=== PATIENT | female | born 1965 | race Caucasian/White ===

== ENCOUNTER 2020-02-12 10:30 | Outpatient (CLI) | payer OTHER, SELFPAY ==
[2020-02-12 11:29] LABS: Basophils Absolute Auto 0.1 K/mm3 (0.0-0.1); Basophils Percent Auto 0.8 % (0.2-1.2); Eosinophils Absolute Auto 0.4 K/mm3 (0-0.3); Eosinophils Percent Auto 3.5 % (0-4.4); Hemoglobin 14.4 g/dL (12.0-15.0); Immature Granulocyte Absolute 0.03 K/mm3 (0.00-0.031); Immature Granulocyte Percent A 0.3 % (0-0.5); Lymphocytes Absolute Auto 3.04 K/mm3 (0.9-3.2); Lymphocytes Percent Auto 29.7 % (18.3-44.2); Mean Corpuscular Hemoglobin 32.7 pg (26-34); Mean Corpuscular Volume 90.9 fl (80-100); Mean Platelet Volume 7.8 fl (7.4-10.4); Monocytes Absolute Auto 0.8 K/mm3 (0.1-0.6); Monocytes Percent Auto 7.6 % (2.6-8.5); Neutrophils Percent Auto 58.1 % (45.5-73.1); Platelet Count Result 513 k/mm3 (150-375); Red Cell Distribution Width 13.5 % (11.5-14.5); White Blood Count 10.2 K/mm3 (4.5-10.0)
[2020-02-12 11:39] LABS: INR 0.9
[2020-02-12 12:13] LABS: Alanine Aminotransferase 13 U/L (4-35); Albumin Level 4.5 g/dL (3.5-5.1); Alkaline Phosphatase 98 U/L (38-126); Anion Gap 9 mmol/L (8-16); Aspartate Amino Transferase 28 U/L (14-36); Bilirubin,Total 0.7 mg/dL (0.2-1.3); Blood Urea Nitrogen 8 mg/dL (7-17); Calcium 9.6 mg/dL (8.4-10.2); Carbon Dioxide 26 mmol/L (22-30); Chloride 94 mmol/L (98-107); Cholesterol 255 mg/dL (0-200); Estimated Glomerular Filt Rate > 60; Glucose 88 mg/dL (65-105); HDL Direct 62 mg/dL; Magnesium 2.4 mg/dL (1.6-2.3); Potassium 5.4 mmol/L (3.4-5.0); Sodium 129 mmol/L (137-145); Triglycerides 109 mg/dL (<150)
[2020-02-12 12:24] LABS: LDL Cholesterol Direct 169 mg/dL
== END 2020-02-12 10:31 | disposition home or self-care (01) ==
PROVIDERS: PCP Family Medicine Adolescent Medicine; Visit Provider Internal Medicine Cardiovascular Disease
DX: R07.89 Other chest pain (principal); R06.00 Dyspnea, unspecified; Z01.810 Encounter for preprocedural cardiovascular examination
CPT/HCPCS: 36415; 80053; 80061; 83735; 84439; 85025; 85610

== ENCOUNTER 2020-02-14 01:20 | Outpatient (CLI) | payer OTHER, SELFPAY ==
[2020-02-14 22:13] LABS: SARS-CoV-2 RNA PCR Negative
== END 2020-02-14 01:21 | disposition home or self-care (01) ==
LOC: ANHCOVIDDT 01:20
PROVIDERS: PCP Family Medicine Adolescent Medicine; Visit Provider Internal Medicine Cardiovascular Disease
DX: Z01.812 Encounter for preprocedural laboratory examination (principal); Z20.828 Contact with and (suspected) exposure to other viral communicable diseases
CPT/HCPCS: 87635; C9803; U0003

== ENCOUNTER 2020-02-17 05:22 | Day surgery (SDC) | payer OTHER, SELFPAY ==
[2020-02-17] VITALS (14 sets, daily range): BP systolic 94–139; BP diastolic 60–89; PULSE 41–62; RESP 11–22; TEMP 36.5–36.8; O2SAT 97–100; BMI 23.8
[2020-02-17 09:06] LABS: Basophils Absolute Auto 0.1 K/mm3 (0.0-0.1); Eosinophils Absolute Auto 0.3 K/mm3 (0-0.3); Eosinophils Percent Auto 3.7 % (0-4.4); Hematocrit 37.1 % (37.0-47.0); Hemoglobin 13.6 g/dL (12.0-15.0); Immature Granulocyte Absolute 0.04 K/mm3 (0.00-0.031); Immature Granulocyte Percent A 0.5 % (0-0.5); Lymphocytes Absolute Auto 1.87 K/mm3 (0.9-3.2); Lymphocytes Percent Auto 22.4 % (18.3-44.2); Mean Corpuscular HGB Conc 36.7 g/dl (32-36); Mean Corpuscular Hemoglobin 32.6 pg (26-34); Mean Platelet Volume 8.5 fl (7.4-10.4); Monocytes Absolute Auto 0.8 K/mm3 (0.1-0.6); Monocytes Percent Auto 9.1 % (2.6-8.5); Neutrophils Absolute Auto 5.3 K/mm3 (1.3-6.7); Neutrophils Percent Auto 63.3 % (45.5-73.1); Platelet Count Result 479 k/mm3 (150-375); Red Blood Count 4.17 M/mm3 (4.2-5.4); Red Cell Distribution Width 13.5 % (11.5-14.5); White Blood Count 8.4 K/mm3 (4.5-10.0)
[2020-02-17 09:43] LABS: INR 0.9; Prothrombin Time 12.7 Seconds (11.1-14.7)
[2020-02-17 10:58] LABS: Alanine Aminotransferase 14 U/L (4-35); Albumin Level 3.8 g/dL (3.5-5.1); Alkaline Phosphatase 81 U/L (38-126); Anion Gap 6 mmol/L (8-16); Aspartate Amino Transferase 22 U/L (14-36); Bilirubin,Total 0.7 mg/dL (0.2-1.3); Blood Urea Nitrogen 7 mg/dL (7-17); Calcium 9.4 mg/dL (8.4-10.2); Carbon Dioxide 28 mmol/L (22-30); Chloride 93 mmol/L (98-107); Estimated CRCL calculation 97 ml/min; Estimated Glomerular Filt Rate > 60; Glucose 101 mg/dL (65-105); Potassium 4.8 mmol/L (3.4-5.0); Sodium 127 mmol/L (137-145)
--- NOTE | 2020-02-17 11:27 | WPDMODSED ---
Moderate Sedation Note-Pt Data Patient Data Allergies Allergy/AdvReac Type Severity Reaction Status Date / Time ibuprofen Allergy Dizziness Verified 02/16/20 13:52 Home Medications Medication Instructions Recorded Confirmed Type levothyroxine 100 mcg PO DAILY 02/16/20 02/16/20 History lisinopril 40 mg PO DAILY 02/16/20 02/16/20 History metoprolol succinate [Toprol XL] 100 mg PO DAILY 02/16/20 02/16/20 History Current Medications: Active Medications Sodium Chloride (Normal Saline Iv) 500 mls @ 100 mls/hr IV CONT .Q5H [facility] Sedation/Anesthesia: No previous sedation/anesthesia problems (including family history). PMFSH Social History Social History Smoking packs per day: 1 Smoking cigarettes per day: 20.0 Smoking status: Current every day smoker Tobacco type: cigarettes Second hand tobacco smoke exposure: Yes Drinks per week: 5 Substance use: never Living arrangements: alone Gender identity (if verbalized by the patient): Female Spiritual care concerns: No Mod Sed Physical Exam Physical Exam Pre Procedural Exam: Normal: Airway Hours since solid foods: 1 Hours since liquid intake: 10 Internal Medicine - PN: Obj Da Vital Signs Vital Signs: Vital Signs - 24 hr 02/17/20 09:00 Temperature 36.6 C Pulse Rate 51 L Respiratory Rate 15 Blood Pressure 104/72 Pulse Oximetry 99 Meds/Results Medications: Active Medications Generic Name Dose Route Start Last Admin Trade Name Freq PRN Reason Stop Dose Admin Sodium Chloride 500 mls @ 100 mls/hr 02/17/20 06:20 Normal Saline Iv IV CONT .Q5H [facility] Labs CBC & Chem 7: 02/17/20 08:51 02/17/20 10:33 Labs: Laboratory Results - last 24 hr 02/17/20 02/17/20 02/17/20 08:51 09:08 10:33 WBC 8.4 RBC 4.17 L Hgb 13.6 Hct 37.1 MCV 89.0 MCH 32.6 MCHC 36.7 H RDW 13.5 Plt Count 479 H MPV 8.5 Immature Gran % (Auto) 0.5 Neut % (Auto) 63.3 Lymph % (Auto) 22.4 [place] % (Auto) 9.1 H Eos % (Auto) 3.7 Baso % (Auto) 1.0 Lymph # (Auto) 1.87 [place] # (Auto) 0.8 H Eos # (Auto) 0.3 Baso # (Auto) 0.1 Abs Immat Gran (auto) 0.04 H Absolute Neuts (auto) 5.3 Absolute Nucleated RBC 0.0 Nucleated RBC % 0.0 PT 12.7 INR 0.9 Sodium 127 L Potassium 4.8 Chloride 93 L Carbon Dioxide 28 Anion Gap 6 L BUN 7 Creatinine 0.40 L Estim Creat Clear Calc 97 Estimated GFR > 60 Glucose 101 Calcium 9.4 Total Bilirubin 0.7 AST 22 ALT 14 Alkaline Phosphatase 81 Total Protein 7.0 Albumin 3.8 ASA Classification/Sedation ASA Classification/Sedation Risks: Risks, benefits and alternatives explained and patient/family accepted plan for sedation. Patient re-evaluated immediately prior to sedation.
--- NOTE | 2020-02-17 11:44 | PM.IMHP ---
H&P: HPI History of Present Illness Date/Time: 02/17/20 11:44 Chief complaint: Abnormal Stress Echo Narrative: Diana Elliott is a 54 year old female hypertension, hypothyroidism, tobacco abuse. Patient was referred by Dr. Jennings for coronary angiogram in the setting of chest discomfort and abnormal stress test. Patient reports episodes of chest discomfort and and shortness of breath. She had exercise MPI done on 11/10/2019. Patient exercised for 6.10 minutes; submaximal exercise ECG, nondiagnostic ST-T changes with exercise; echocardiogram was reported to show hypokinesis in the basal inferior, mid inferior and basal inferoseptal segments. LVEF was reported to be normal. [facility] Past Medical History Medical History Hypertension Social History Social History Smoking packs per day: 1 Smoking cigarettes per day: 20.0 Smoking status: Current every day smoker Tobacco type: cigarettes Second hand tobacco smoke exposure: Yes Drinks per week: 5 Substance use: never Living arrangements: alone Gender identity (if verbalized by the patient): Female Spiritual care concerns: No Meds Home Medications and Allergies Home Medications Medication Instructions Recorded Confirmed Type levothyroxine 100 mcg PO DAILY 02/16/20 02/16/20 History lisinopril 40 mg PO DAILY 02/16/20 02/16/20 History metoprolol succinate [Toprol XL] 100 mg PO DAILY 02/16/20 02/16/20 History Allergies Allergy/AdvReac Type Severity Reaction Status Date / Time ibuprofen Allergy Dizziness Verified 02/16/20 13:52 Vital Signs Vital Signs - 24 hr 02/17/20 09:00 Temperature 36.6 C Pulse Rate 51 L Respiratory Rate 15 Blood Pressure 104/72 Pulse Oximetry 99 Exam Narrative: Exam Narrative: PHYSICAL EXAMINATION: GENERAL: Alert, oriented, no acute distress MENTAL STATUS: affect appropriate to mood EYES: Extraocular movements intact, no pallor EARS: External ears appear normal, hearing grossly normal NOSE: Normal and patent, no discharge MOUTH: Mucous membranes moist, tongue normal NECK: Supple, no JVD CHEST: Good respiratory effort, clear to auscultation HEART: Normal rate, regular rhythm, normal S1 and S2, no audible murmurs ABDOMEN: Soft, nontender NEUROLOGICAL: Alert, oriented, normal speech, no gross motor deficits MUSCULOSKELETAL: No major deformity, no amputation EXTREMITIES: No pedal edema, no clubbing, no cyanosis SKIN: no rash on the exposed area, no cyanosis PSYCHIATRIC: Normal mood, appropriate affect H&P: Results Labs Labs: Short CBC 02/17/20 Range/Units 08:51 WBC 8.4 (4.5-10.0) K/mm3 Hgb 13.6 (12.0-15.0) g/dL Hct 37.1 (37.0-47.0) % Plt Count 479 H (150-375) k/mm3 BMP 02/17/20 10:33 Sodium 127 L Potassium 4.8 Chloride 93 L Carbon Dioxide 28 BUN 7 Creatinine 0.40 L Glucose 101 Calcium 9.4 Liver Function 02/17/20 Range/Units 10:33 Total Bilirubin 0.7 (0.2-1.3) mg/dL AST 22 (14-36) U/L ALT 14 (4-35) U/L Alkaline Phosphatase 81 (38-126) U/L Albumin 3.8 (3.5-5.1) g/dL Assessment and Plan Assessment and plan (1) Chest pain: Code(s): R07.9 - Chest pain, unspecified Status: Acute Assessment and Plan: cardiac catheterization
--- NOTE | 2020-02-17 11:47 | WPDCARDPROC ---
Cardiac Cath Procedure Note Date of procedure:: 02/17/20 Performing physician:: Miguel Jara MD Procedure Procedure note:: LEFT HEART CATHETERIZATION AND CORONARY ANGIOGRAM REPORT DATE OF PROCEDURE: 02/17/2020 INDICATION FOR PROCEDURE: Chest pain, abnormal stress echo BRIEF CLINICAL HISTORY:54 year old female with hypertension, hypothyroidism, tobacco abuse. Patient was referred by Dr. Jennings for coronary angiogram in the setting of chest discomfort and abnormal stress test. Patient reports episodes of chest discomfort and and shortness of breath. She had exercise MPI done on 11/10/2019. Patient exercised for 6.10 minutes; submaximal exercise ECG, nondiagnostic ST-T changes with exercise; echocardiogram was reported to show hypokinesis in the basal inferior, mid inferior and basal inferoseptal segments. LVEF was reported to be normal. Benefits and risks of the procedure were discussed with the patient in depth, and informed consent was obtained prior to the procedure. Risks of the procedure include but are not limited to vascular complications including groin hematoma, retroperitoneal bleed, vessel perforation; periprocedural AK, cardiac arrhythmias, stroke, contrast induced nephropathy, and . After discussing all the benefits, risks and alternatives, patient was willing to proceed with the procedure. PROCEDURES PERFORMED: 1. Left heart catheterization- Selective left and right coronary angiogram; left ventriculogram and hemodynamic assessment 2. Selective right common femoral angiogram 3. Moderate sedation-CPT code 80733 MODERATE SEDATION: Midazolam 1 mg; fentanyl 25 mcg; Start time 1119 , Stop time 1144 ; Total [id number] time 25 minutes; Chel Salinas RN was trained observer for moderate sedation. ACCESS SITE: Right common femoral artery PROCEDURE NOTE: After obtaining informed consent, patient was brought to catheterization lab and prepped and draped in a usual sterile manner. After local anesthesia with lidocaine, right common femoral artery access was taken with micropuncture needle followed by insertion of a 5 Cuban sheath. Selective left and right coronary angiogram was performed using 5 Cuban JL4 and JR4 catheters respectively. Orthogonal views were taken. Next, a 5 Cuban pigtail catheter was advanced in the LV cavity and was flushed with normal saline. LV pressure measurement was performed. After this, left ventriculogram was performed. The catheter was flushed again, and gradient across the aortic valve was measured on the pullback of the catheter. Finally, selective right common femoral angiogram was performed. The 5 Cuban sheath was occlusive for the common femoral artery, therefore, vascular closure device was not used. Manual pressure will be used for local hemostasis. Patient tolerated procedure well without any immediate procedure related complications. FINDINGS: LEFT MAIN CORONARY: Medium caliber, no focal stenosis. LEFT ANTERIOR DESCENDING ARTERY: the LAD is a small to medium caliber vessel, tapers distally and becomes a very diminutive vessel. No significant focal stenosis seen in the LAD or its diagonal branches. LEFT CIRCUMFLEX ARTERY: Medium caliber , no focal stenosis RIGHT CORONARY ARTERY: medium caliber, no some focal stenosis in the RCA are it is medium-sized PDA and PLV branches. LEFT VENTRICULOGRAM: Preserved LV systolic function, ejection fraction approximately 70%. LVEDP 21 mmHg HEMODYNAMIC ASSESSMENT: Opening pressure 127/93 , closing pressure 160/76 , LVEDP 21 , no significant gradient across aortic valve on the pullback of pigtail catheter. CONCLUSIONS: 1. No angiographically significant obstructive CAD. 2. Normal LV systolic function, ejection fraction was 70%. LVEDP 21 mmHg. PLAN/RECOMMENDATIONS: Optimal medical treatment and risk factor modification including smoking cessation. Outpatient follow-up with Dr Jennings. This document was completed by lisa
--- NOTE | 2020-02-17 18:50 | SUR.PHASEII ---
DISCHARGE INSTRUCTIONS GIVEN AND REVIEWED W/ PT. NO NEW CHANGES R. GROIN SITE. REMAINS SOFT, NONTENDER. DRESSING C/D/I. NO BLEEDING OR HEMATOMA. R. PEDAL PULSE PALP STRONG. DISCHARGED HOME, OUT VIA WC W/ ALL PERSONAL BELONGINGS AND DISCHARGE PACKET TO DAUGHTER'S WAITING CAR. NO DISTRESS NOTED. VOICES NO C/O.
== END 2020-02-17 18:50 | disposition home or self-care (01) ==
PROVIDERS: PCP Family Medicine Adolescent Medicine; Visit Provider Internal Medicine Cardiovascular Disease
PROC: 4A023N7 Measurement of Cardiac Sampling and Pressure, Left Heart, Percutaneous Approach (ICD-10-PCS; CPT 93452; principal; 2020-02-17 10:00)
DX: R94.39 Abnormal result of other cardiovascular function study (principal); R07.9 Chest pain, unspecified; I10 Essential (primary) hypertension; E03.9 Hypothyroidism, unspecified; F17.210 Nicotine dependence, cigarettes, uncomplicated
CPT/HCPCS: 36415; 80053; 85025; 85610; 93458; C1887; C1894; J1644; J2250; J3010; J7040

== ENCOUNTER 2020-09-22 11:16 | Outpatient (CLI) | payer OTHER, SELFPAY ==
[2020-09-22 11:59] LABS: Alanine Aminotransferase 12 U/L (4-35); Albumin Level 4.3 g/dL (3.5-5.1); Alkaline Phosphatase 83 U/L (38-126); Anion Gap 10 mmol/L (8-16); Aspartate Amino Transferase 27 U/L (14-36); Bilirubin,Total 0.6 mg/dL (0.2-1.3); Blood Urea Nitrogen 5 mg/dL (7-17); Calcium 9.6 mg/dL (8.4-10.2); Carbon Dioxide 22 mmol/L (22-30); Chloride 93 mmol/L (98-107); Estimated Glomerular Filt Rate > 60; Glucose 78 mg/dL (65-105); Potassium 5.3 mmol/L (3.4-5.0); Sodium 125 mmol/L (137-145)
[2020-09-22 12:29] LABS: Thyroid Stimulating Hormone 0.032 uIU/mL (0.465-4.680)
== END 2020-09-22 11:17 | disposition home or self-care (01) ==
PROVIDERS: PCP Family Medicine Adolescent Medicine; Visit Provider Physician Assistant
DX: E03.9 Hypothyroidism, unspecified (principal); I10 Essential (primary) hypertension
CPT/HCPCS: 36415; 80053; 84443